=== PATIENT | male | born 1980 | race African-American/Black ===

== ENCOUNTER 2019-08-16 02:59 | Emergency (ER) | payer MEDICAID ==
[~2019-08-16] VITALS: Ht 185.4 cm; Wt 91.0 kg
[~2019-08-16 02:59] MED LIST: ALBU17AE26
[2019-08-16] MEDS ORDERED: SODIUM CHLORIDE 0.9% 1,000 ML IV ONE (05:09)
[2019-08-16 05:24] LABS: BASOPHILS % 0.7 % (0.0-2.0); EOSINOPHILS % 5.7 % (0.0-5.0); HEMATOCRIT. 43.9 % (42.0-52.0); HEMOGLOBIN. 14.2 g/dL (14.0-18.0); LYMPHOCYTES % 22.7 % (20.0-50.0); MEAN CORPUSCULAR HEMOGLOBIN 23.9 pg (28.0-32.0); MEAN CORPUSCULAR VOLUME 73.8 fL (80.0-94.0); NEUTROPHILS % 63.9 % (40.0-76.0); PLATELET 245 x1000/uL (130-400); RED BLOOD CELL COUNT 5.95 mill/uL (4.7-6.1); RED CELL DISTRIBUTION WIDTH 16.4 % (11.6-14.6)
[2019-08-16 05:32] LABS: CHLORIDE 107 mEq/L (98-107)
[2019-08-16 05:33] LABS: PROTHROMBIN TIME 10.7 sec (9.6-11.0)
[2019-08-16] MEDS ORDERED: IOHEXOL-300 100 ML BOTTLE ONE (06:46)
[2019-08-16] MEDS ORDERED: SODIUM CHLORIDE 0.9% 1,000 ML IV SCH (08:28)
[2019-08-16] MEDS ORDERED: ONDANSETRON HCL 4MG/2ML INJ IV PRN (08:30)
[2019-08-16] MEDS ORDERED: CLONIDINE 0.1MG TABLET PO PRN (08:30)
[2019-08-16] MEDS ORDERED: DIPHENHYDRAMINE 50MG/ML VIAL IV PRN (08:30)
[2019-08-16 09:32] LABS: PHOSPHORUS 3.9 mg/dL (2.5-4.9)
[2019-08-16 17:28] VITALS: BP 147/80
== END 2019-08-16 20:30 | disposition left against medical advice (07) ==
LOC: ER 02:59 → EDBEDREQ 05:49 → EDBEDREQTM 05:49 → ER 20:30 → CANBEDREQ 23:54
DX: K92.2 Gastrointestinal hemorrhage, unspecified (principal); R74.0 Nonspecific elevation of levels of transaminase and lactic acid dehydrogenase [LDH]; J45.909 Unspecified asthma, uncomplicated; Z98.890 Other specified postprocedural states
CPT/HCPCS: 36415; 74177; 80053; 83690; 83735; 84100; 85025; 85610; 86850; 86900; 86901; 93970; 99285; J7030; Q9967